=== PATIENT | male | born 1985 | race Caucasian/White ===

== ENCOUNTER 2017-07-10 07:29 | Emergency (ER) | payer OTHER ==
[2017-07-10 07:35] VITALS: BP 122/79; PULSE 68; RESP 18; TEMP 97.3
[2017-07-10] MEDS ORDERED: KETOROLAC 60 MG/2 ML VIAL IM STA (08:19)
[2017-07-10] MEDS ORDERED: ORPHENADRINE 30 MG/ML 2 ML VIAL IM STA (08:19)
--- NOTE | 2017-07-10 08:32 | XR ---
EXAMINATION TYPE: XR cervical spine limited DATE OF EXAM: 07/10/2017 CLINICAL HISTORY: pain TECHNIQUE: 3 views of the cervical spine are submitted. COMPARISON: None. FINDINGS: There is satisfactory in alignment without evidence of acute fracture or dislocation. The pre-vertebral soft tissue appears within normal limits.Disc spaces are well preserved. The C1-C2 art iculation is unremarkable on the open mouth view. IMPRESSION: No acute fracture or dislocation is seen in the cervical spine.
--- NOTE | 2017-07-10 08:49 | ED ---
Neck Injury/Pain HPI - General Chief Complaint: Neck Pain/Injury Stated Complaint: neck pain Time Seen by Provider: 07/10/17 07:54 Source: RN notes reviewed, old records reviewed Mode of arrival: ambulatory Limitations: no limitations - Related Data Previous Rx's Medication Instructions Recorded Acetaminophen-Codeine 300-30mg 1 tab PO Q6H PRN #12 tablet 07/10/17 [Tylenol #3] Cyclobenzaprine [Flexeril] 10 mg PO TID #15 tab 07/10/17 Dexamethasone 0.75 mg PO DAILY #12 tab 07/10/17 Allergies Allergy/AdvReac Type Severity Reaction Status Date / Time No Known Allergies Allergy Verified 07/10/17 08:10 Review of Systems ROS Statement: Those systems with pertinent positive or pertinent negative responses have been documented in the HPI. ROS Other: All systems not noted in ROS Statement are negative. Past Medical History Past Medical History: No Reported History History of Any Multi-Drug Resistant Organisms: None Reported Past Surgical History: Orthopedic Surgery Additional Past Surgical History / Comment(s): left wrist Past Psychological History: No Psychological Hx Reported Smoking Status: Current some day smoker Past Alcohol Use History: Occasional Past Drug Use History: None Reported General Exam Limitations: no limitations Course Vital Signs 07/10/17 07:32 Temperature 97.3 F L Pulse Rate 68 Respiratory 18 Rate Blood Pressure 122/79 O2 Sat by Pulse 100 Oximetry Medical Decision Making - Radiology Data Radiology results: report reviewed fracture dislocations and cervical spine. C1-C2 articulation is unremarkable with a open mouth view. A vertebral soft tissue spaces are within normal limits. Disc spaces are well preserved. Disposition Clinical Impression: Neck muscle spasm Disposition: HOME SELF-CARE Condition: Good Instructions: Cervical Strain (ED) Additional Instructions: Patient needs to apply heat and ice to neck and upper back. Take the medications as prescribed. Follow-up with primary care physician. Patient is to do passive stretching. Return to the emergency department if any alarming signs or symptoms occur. Prescriptions: Acetaminophen-Codeine 300-30mg [Tylenol #3] 1 tab PO Q6H PRN #12 tablet PRN Reason: Pain Cyclobenzaprine [Flexeril] 10 mg PO TID #15 tab Dexamethasone 0.75 mg PO DAILY #12 tab Referrals: None,Stated [Primary Care Provider] - 1-2 days Kailey Silva MD [STAFF PHYSICIAN] - 1-2 days Time of Disposition: 08:47
== END 2017-07-10 08:59 | disposition home or self-care (01) ==
LOC: EC 07:29
DX: M62.838 Other muscle spasm (principal); F17.200 Nicotine dependence, unspecified, uncomplicated
CPT/HCPCS: 99284; 96372 ×2; 72040; J2360; J1885

== ENCOUNTER 2017-07-13 12:44 | Emergency (ER) | payer OTHER ==
[2017-07-13 13:14] VITALS: BP 147/75; PULSE 98; RESP 18; TEMP 99.1
--- NOTE | 2017-07-13 13:59 | ED ---
General Adult HPI - General Chief complaint: Neck Pain/Injury Stated complaint: Neck Pain Time Seen by Provider: 07/13/17 13:50 Source: patient, RN notes reviewed Mode of arrival: ambulatory Limitations: no limitations - History of Present Illness Initial comments: 31-year-old male presents to the emergency department with a chief complaint of neck pain. Patient was seen here a few days ago for this neck pain. Patient states it hurts if he moves his neck certain ways. He noticed little bit of numbness and tingling to the left hand fingertips today so he was concerned. He did taking the medications at home without much improvement he states he'll get better when he hasn't been on a wear off he tells the pain exactly the same. Patient states he has a history of this in the past he states he normally went away much quicker tenderness. Patient was concerned due to his pain and discomforts without that he should be evaluated.Patient denies any recent fever, chills, shortness of breath, chest pain, back pain, abdominal pain , nausea vomiting, numbness or tingling, dysuria or hematuria, constipation or diarrhea, headaches or visual changes, or any other current symptoms. - Related Data Previous Rx's Medication Instructions Recorded Acetaminophen-Codeine 300-30mg 1 tab PO Q6H PRN #12 tablet 07/10/17 [Tylenol #3] Cyclobenzaprine [Flexeril] 10 mg PO TID #15 tab 07/10/17 Dexamethasone 0.75 mg PO DAILY #12 tab 07/10/17 Allergies Allergy/AdvReac Type Severity Reaction Status Date / Time No Known Allergies Allergy Verified 07/13/17 13:14 Review of Systems ROS Statement: Those systems with pertinent positive or pertinent negative responses have been documented in the HPI. ROS Other: All systems not noted in ROS Statement are negative. Past Medical History Past Medical History: No Reported History History of Any Multi-Drug Resistant Organisms: None Reported Past Surgical History: Orthopedic Surgery Additional Past Surgical History / Comment(s): left wrist Past Psychological History: No Psychological Hx Reported Smoking Status: Current every day smoker Past Alcohol Use History: Occasional Past Drug Use History: None Reported General Exam Limitations: no limitations General appearance: alert, in no apparent distress Head exam: Present: atraumatic, normocephalic, normal inspection ENT exam: Present: normal exam, mucous membranes moist Neck exam: Present: normal inspection, full ROM (Pain in all duarte). Absent: tenderness, lymphadenopathy, thyromegaly Respiratory exam: Present: normal lung sounds bilaterally. Absent: respiratory distress, wheezes, rales, rhonchi, stridor Cardiovascular Exam: Present: regular rate, normal rhythm, normal heart sounds. Absent: systolic murmur, diastolic murmur, rubs, gallop, clicks Neurological exam: Present: alert, oriented X3 Psychiatric exam: Present: normal affect, normal mood Skin exam: Present: warm, dry, intact, normal color. Absent: rash Course Vital Signs 07/13/17 13:11 Temperature 99.1 F Pulse Rate 98 Respiratory 18 Rate Blood Pressure 147/75 O2 Sat by Pulse 99 Oximetry Medical Decision Making - Medical Decision Making 31-year-old male presents with patient's he department with a chief complaint of what appears to be a torticollis. This time we did do a CT due to patient stating he still had pain but does not show any acute processes for his symptoms either. We did discuss this will take time we did discuss custodial. We did discuss follow-up with the follow-up with discussed return parameters all his questions. He stated he understood and he is given plan. This time he will be discharged home. - Radiology Data Radiology results: report reviewed, image reviewed Disposition Clinical Impression: Torticollis, acute, Cervical disc herniation Disposition: HOME SELF-CARE Condition: Stable Instructions: Spasmodic Torticollis (ED) Additional Instructions: Please use medication as discussed. Please follow up with family doctor if symptoms have not improved over the next two days. Please return to the emergency room if your symptoms increase or worsen or for any other concerns. Referrals: Rolando Reddy DO [Doctor of Osteopathic Medicine] - 1-2 days Time of Disposition: 14:50
--- NOTE | 2017-07-13 14:47 | CT ---
EXAMINATION TYPE: CT cervical spine wo con DATE OF EXAM: 07/13/2017 COMPARISON: NONE HISTORY: Neck pain CT DLP: 373.[address] of the cervical spine was performed with bone and soft tissue window settings submitted . Coronal and sagittal reconstruction is obtained. There is normal alignment and prevertebral soft tissues. I do not see evidence for fracture or sublu xation. C2-3: Within normal limits C3-4: Mild degenerative disc space narrowing. Left paracentral disc herniation effaces the ventral th ecal sac and results in left lateral recess stenosis and left foraminal encroachment. No evidence for central stenosis. Right neural foramen is patent. C4-5: Mild disc space narrowing. Mild posterocentral disc bulge without adalid herniation. No central stenosis or foraminal encroachment. C5-6: Mild degenerative disc space narrowing. Right paracentral disc bulge with mild effacement ventr al thecal sac. Mild right foraminal encroachment. No central stenosis. C6-7: Mild degenerative disc space narrowing. Broad-based posterior disc bulge effaces the ventral th ecal sac. No evidence for cord contact or central stenosis. Mild bilateral foraminal encroachment. C7-T1: Within normal limits. IMPRESSION: 1. Left paracentral disc herniation at C3-4 with left lateral recess stenosis and left foraminal encr oachment. 2. Disc bulging as detailed above.
== END 2017-07-13 14:57 | disposition home or self-care (01) ==
LOC: EC 12:44
DX: M43.6 Torticollis (principal); M50.20 Other cervical disc displacement, unspecified cervical region; F17.200 Nicotine dependence, unspecified, uncomplicated
CPT/HCPCS: 72125; 99283

== ENCOUNTER 2017-12-20 14:12 | Emergency (ER) | payer OTHER ==
[2017-12-20] MEDS ORDERED: HYDROcodone/APAP 5-325MG 1 EACH TAB PO STA (14:40)
[2017-12-20] MEDS ORDERED: KETOROLAC 60 MG/2 ML VIAL IM STA (14:40)
[2017-12-20] MEDS ORDERED: DIAZEPAM 5 MG TAB PO STA (14:40)
--- NOTE | 2017-12-20 14:53 | ED ---
General Adult HPI - General Chief complaint: Neck Pain/Injury Stated complaint: Neck Pain Time Seen by Provider: 12/20/17 14:25 Source: patient, RN notes reviewed, old records reviewed Mode of arrival: ambulatory Limitations: no limitations - History of Present Illness Initial comments: this is a 31-year-old male to the ER for evaluation. This patient presents today for evaluation regards to neck pain. Patient does have history of back pain. Patient has no trauma. Patient has full prior imaging including CAT scan of neck and before that he has with him. No medications he took at home did help. Patient's symptoms started when he awoke this morning. Patient states he occasionally gets these episodes of tightness in his neck usually is able to resolve. Patient denies any fevers or trauma - Related Data Home Medications Medication Instructions Recorded Confirmed No Known Home Medications [No 12/20/17 12/20/17 Known Home Medications] Allergies Allergy/AdvReac Type Severity Reaction Status Date / Time No Known Allergies Allergy Verified 12/20/17 14:33 Review of Systems ROS Statement: Those systems with pertinent positive or pertinent negative responses have been documented in the HPI. ROS Other: All systems not noted in ROS Statement are negative. Past Medical History Past Medical History: No Reported History History of Any Multi-Drug Resistant Organisms: None Reported Past Surgical History: Orthopedic Surgery Additional Past Surgical History / Comment(s): left wrist Past Psychological History: No Psychological Hx Reported Smoking Status: Current every day smoker Past Alcohol Use History: Occasional Past Drug Use History: Marijuana General Exam - General Exam Comments Initial Comments: decreased range of motion neck in all directions, both passively and actively Limitations: no limitations General appearance: alert, in no apparent distress Head exam: Present: atraumatic, normocephalic, normal inspection Eye exam: Present: normal appearance, PERRL, EOMI. Absent: scleral icterus, conjunctival injection, periorbital swelling ENT exam: Present: normal exam, mucous membranes moist Neck exam: Present: normal inspection. Absent: tenderness, meningismus, lymphadenopathy Respiratory exam: Present: normal lung sounds bilaterally. Absent: respiratory distress, wheezes, rales, rhonchi, stridor Cardiovascular Exam: Present: regular rate, normal rhythm, normal heart sounds. Absent: systolic murmur, diastolic murmur, rubs, gallop, clicks GI/Abdominal exam: Present: soft, normal bowel sounds. Absent: distended, tenderness, guarding, rebound, rigid Extremities exam: Present: normal inspection, full ROM, normal capillary refill. Absent: tenderness, pedal edema, joint swelling, calf tenderness Back exam: Present: normal inspection Neurological exam: Present: alert, oriented X3, CN II-XII intact Psychiatric exam: Present: normal affect, normal mood Skin exam: Present: warm, dry, intact, normal color. Absent: rash Course Vital Signs 12/20/17 14:15 Temperature 98.2 F Pulse Rate 99 Respiratory 18 Rate Blood Pressure 140/95 O2 Sat by Pulse 95 Oximetry - Reevaluation(s) Reevaluation #1: 12/20/17 14:52 patient feeling better with pain medication, taken through both passive and active range of motion exercises, patient also encouraged to apply heat Medical Decision Making - Medical Decision Making 31 male the ER with recurrent spasmatic torticollis of the neck. Patient given stretching exercises anti-inflammatories and pain control for home Disposition Clinical Impression: Strain of neck muscle, Torticollis Disposition: HOME SELF-CARE Condition: Good Instructions: Cervical Strain (ED), Spasmodic Torticollis (ED) Referrals: Sonido Masterson MD [Primary Care Provider] - 1-2 days
[2017-12-20 16:35] VITALS: BP 128/66; PULSE 78; RESP 16; TEMP 97.7
== END 2017-12-20 16:56 | disposition home or self-care (01) ==
LOC: EC 14:12
DX: S16.1XXA Strain of muscle, fascia and tendon at neck level, initial encounter (principal); M43.6 Torticollis; F17.200 Nicotine dependence, unspecified, uncomplicated
CPT/HCPCS: 99284; 96372; J1885

== ENCOUNTER 2020-08-02 20:00 | Emergency (ER) | payer OTHER ==
[2020-08-02 20:08] VITALS: RESP 18
[2020-08-02] MEDS ORDERED: SODIUM CHLORIDE 0.9% 1,000 ML IV STA (20:21)
[2020-08-02] MEDS ORDERED: ONDANSETRON 4 MG/2 ML VIAL IVP STA (20:22)
--- NOTE | 2020-08-02 20:31 | ED ---
Overdose HPI - General Chief Complaint: Overdose Stated Complaint: Overdose Time Seen by Provider: 08/02/20 20:15 Source: patient, RN notes reviewed Mode of arrival: ambulatory Limitations: no limitations - History of Present Illness Initial Comments: 34-year-old male presented to the emergency Department with chief complaint of overdose. Patient states that he reportedly from pill and shopping cart in which he states he looked it up and found that it was oxycodone 30 mg. Patient states that he felt that he wanted to hydrate night so he broke in half that the initial half and then a few minutes later second. Significant other in room states that he became very drowsy, was having difficult breathing became unconscious. At this point some in the household has Narcan and was administered. Patient states he does not use drugs a regular basis he use recreational use narcotics. Denies heroin use. Denies intentional overdose. Patient does feel nauseated said several episodes of vomiting. MD Complaint: accidental overdose - Related Data Previous Rx's Medication Instructions Recorded Diazepam [Valium] 5 mg PO HS #10 tab 12/20/17 HYDROcodone/APAP 5-325MG [[place] 1 tab PO Q6HR PRN #20 tab 12/20/17 5-325] Naproxen [Naprosyn] 500 mg PO Q12HR PRN #30 tab 12/20/17 Allergies Allergy/AdvReac Type Severity Reaction Status Date / Time No Known Allergies Allergy Verified 08/02/20 20:08 Review of Systems ROS Statement: Those systems with pertinent positive or pertinent negative responses have been documented in the HPI. ROS Other: All systems not noted in ROS Statement are negative. Past Medical History Past Medical History: No Reported History History of Any Multi-Drug Resistant Organisms: None Reported Past Surgical History: Orthopedic Surgery Additional Past Surgical History / Comment(s): left wrist Past Psychological History: No Psychological Hx Reported Smoking Status: Current every day smoker Past Alcohol Use History: Occasional Past Drug Use History: Marijuana General Exam Limitations: no limitations General appearance: alert, in no apparent distress Head exam: Present: atraumatic, normocephalic, normal inspection Eye exam: Present: normal appearance, PERRL, EOMI. Absent: scleral icterus, conjunctival injection, periorbital swelling Pupils: Present: miosis ENT exam: Present: normal exam, normal oropharynx, mucous membranes moist Neck exam: Present: normal inspection, full ROM. Absent: tenderness, meningismus, lymphadenopathy Respiratory exam: Present: normal lung sounds bilaterally, decreased breath sounds. Absent: respiratory distress, wheezes, rales, rhonchi, stridor Cardiovascular Exam: Present: regular rate, normal rhythm, normal heart sounds. Absent: systolic murmur, diastolic murmur, rubs, gallop, clicks GI/Abdominal exam: Present: soft, normal bowel sounds. Absent: distended, tenderness, guarding, rebound, rigid Neurological exam: Present: alert, oriented X3, CN II-XII intact Psychiatric exam: Present: normal affect, normal mood Skin exam: Present: warm, dry, intact, normal color. Absent: rash Course Vital Signs 08/02/20 20:02 Temperature 98.5 F Pulse Rate 105 H Respiratory 18 Rate Blood Pressure 124/79 O2 Sat by Pulse 97 Oximetry Medical Decision Making - Medical Decision Making Patient had accidental overdoses he states that he took a pill at a phone. This was oxycodone 30 mg. Patient was given Narcan by family member. Patient is awake alert and orientated is here with his significant other will be discharged at this is an accidental overdose was no intention. He denies any suicidal or homicidal. - Lab Data Result diagrams: 08/02/20 20:28 08/02/20 20:28 Lab Results 08/02/20 08/02/20 08/02/20 Range/Units 20:28 20:28 20:28 WBC 16.8 H (3.8-10.6) k/uL RBC 4.82 (4.30-5.90) m/uL Hgb 16.0 (13.0-17.5) gm/dL Hct 47.6 (39.0-53.0) % MCV 98.7 (80.0-100.0) fL MCH 33.1 (25.0-35.0) pg MCHC 33.5 (31.0-37.0) g/dL RDW 12.2 (11.5-15.5) % Plt Count 240 (150-450) k/uL Neutrophils % 69 % Lymphocytes % 24 % Monocytes % 4 % Eosinophils % 1 % Basophils % 1 % Neutrophils # 11.7 H (1.3-7.7) k/uL Lymphocytes # 4.0 (1.0-4.8) k/uL Monocytes # 0.7 (0-1.0) k/uL Eosinophils # 0.2 (0-0.7) k/uL Basophils # 0.1 (0-0.2) k/uL Sodium 140 (137-145) mmol/L Potassium 3.4 L (3.5-5.1) mmol/L Chloride 105 (98-107) mmol/L Carbon Dioxide 23 (22-30) mmol/L Anion Gap 12 mmol/L BUN 11 (9-20) mg/dL Creatinine 0.90 (0.66-1.25) mg/dL Est GFR (CKD-EPI)AfAm >90 (>60 ml/min/1.73 sqM) Est GFR (CKD-EPI)NonAf >90 (>60 ml/min/1.73 sqM) Glucose 142 H (74-99) mg/dL Calcium 9.1 (8.4-10.2) mg/dL Total Bilirubin 0.4 (0.2-1.3) mg/dL AST 21 (17-59) U/L ALT 14 (4-49) U/L Alkaline Phosphatase 67 (38-126) U/L Total Protein 7.3 (6.3-8.2) g/dL Albumin 4.7 (3.5-5.0) g/dL Salicylates <1.0 mg/dL Urine Opiates Screen Detected H (NotDetected) Ur Oxycodone Screen Not Detected (NotDetected) Urine Methadone Screen Not Detected (NotDetected) Ur Propoxyphene Screen Not Detected (NotDetected) Acetaminophen <10.0 ug/mL Ur Barbiturates Screen Not Detected (NotDetected) U Tricyclic Antidepress Not Detected (NotDetected) Ur Phencyclidine Scrn Not Detected (NotDetected) Ur Amphetamines Screen Not Detected (NotDetected) U Methamphetamines Scrn Not Detected (NotDetected) U Benzodiazepines Scrn Not Detected (NotDetected) Urine Cocaine Screen Not Detected (NotDetected) U Marijuana (THC) Screen Detected H (NotDetected) - EKG Data -: EKG Interpreted by [place] EKG Comments: EKG performed at 20:16 sinus tachycardia I ordered axis with a rate of 108 RI 154 QRS 98 QT/QTC 352/471 Disposition Clinical Impression: Accidental drug overdose, Opiate overdose Disposition: HOME SELF-CARE Condition: Stable Instructions (If sedation given, give patient instructions): Adult Overdose (ED) Additional Instructions: Please return to the Emergency Department if symptoms worsen or any other concerns. Is patient prescribed a controlled substance at d/c from ED?: No Referrals: None,Stated [Primary Care Provider] - 1-2 days Time of Disposition: 21:21
[2020-08-02 20:37] LABS: Basophils # (A) 0.1 k/uL (0-0.2); Basophils % (A) 1 %; Eosinophils # (A) 0.2 k/uL (0-0.7); Eosinophils % (A) 1 %; HCT 47.6 % (39.0-53.0); Lymphocytes % (A) 24 %; MCH 33.1 pg (25.0-35.0); MCHC 33.5 g/dL (31.0-37.0); MCV 98.7 fL (80.0-100.0); Mean Platelet Volume 7.9; Monocytes # (A) 0.7 k/uL (0-1.0); Monocytes % (A) 4 %; Neutrophils # (A) 11.7 k/uL (1.3-7.7); Neutrophils % (A) 69 %; Platelet Count 240 k/uL (150-450); RBC 4.82 m/uL (4.30-5.90); RDW 12.2 % (11.5-15.5); WBC 16.8 k/uL (3.8-10.6)
[2020-08-02 20:43] LABS: Chloride 105 mmol/L (98-107)
[2020-08-02 20:46] LABS: ALT 14 U/L (4-49); AST 21 U/L (17-59); Acetaminophen <10.0 ug/mL; African American GFR (CKD) >90 (>60 ml/min/1.73 sqM); Albumin 4.7 g/dL (3.5-5.0); Alkaline Phosphatase 67 U/L (38-126); Anion Gap 12 mmol/L; Blood Urea Nitrogen 11 mg/dL (9-20); Calcium 9.1 mg/dL (8.4-10.2); Carbon Dioxide 23 mmol/L (22-30); Glucose 142 mg/dL (74-99); Non-African American GFR(CKD) >90 (>60 ml/min/1.73 sqM); Potassium 3.4 mmol/L (3.5-5.1); Salicylate <1.0 mg/dL; Sodium 140 mmol/L (137-145); Total Bilirubin 0.4 mg/dL (0.2-1.3); Total Protein 7.3 g/dL (6.3-8.2)
[2020-08-02 21:16] LABS: Amphetamine Screen,Urine Not Detected (NotDetected); Barbiturate Screen,Urine Not Detected (NotDetected); Benzodiazepines Screen,Urine Not Detected (NotDetected); Cocaine Screen,Urine Not Detected (NotDetected); Methadone Screen, Urine Not Detected (NotDetected); Opiate Screen,Urine Detected (NotDetected); Oxycodone Screen, Urine Not Detected (NotDetected); Phencyclidine Screen,Urine Not Detected (NotDetected); Tricyclic Antidepressant,Urine Not Detected (NotDetected); Urn Cannabinoid Scrn Detected (NotDetected)
[2020-08-02 21:38] VITALS: BP 111/77; PULSE 92; TEMP 98.1
== END 2020-08-02 21:38 | disposition home or self-care (01) ==
LOC: EC 20:00
DX: T40.2X1A Poisoning by other opioids, accidental (unintentional), initial encounter (principal); F17.200 Nicotine dependence, unspecified, uncomplicated
CPT/HCPCS: 36415; 93005; 80053; 85025; 80306; 83520; 99284; 96374; 96361; G0480; J2405; 80329

== ENCOUNTER → 2021-06-27 | Outpatient (CLI) | payer OTHER ==
--- NOTE | 2021-06-29 12:28 | CT ---
EXAMINATION TYPE: CT cervical spine wo con DATE OF EXAM: 06/27/2021 COMPARISON: 07/13/2017 HISTORY: NECK PAIN X5 YEARS CT DLP: 489.9 mGycm CONTRAST: None CT of the cervical spine is performed in the axial plane at 2 mm thick sections. Reconstructed image s in the coronal, and sagittal plane are reviewed on the computer. No acute fractures are evident. Vertebral body alignment is normal. Disc heights are preserved. Vertebral body heights are preserved. C3-4: There is mild left paracentral disc bulge at C3-4 with mild anterior thecal sac compression. No spinal canal stenosis is present. Some endplate spurring from the left C4 endplate is present with m ild anterior thecal sac compression. C5-6: At C5-6 there is right paracentral broad-based disc bulge with moderate anterior thecal sac com pression. This appears to have cord contact and cord deformity. No spinal canal stenosis present. Lef t foraminal stenosis is present. C6-7: At C6-7 there is broad-based disc bulge with moderate anterior thecal sac compression. No AP sp inal canal stenosis present. The neural foramen are patent. IMPRESSIONS: 1. Disc bulging C3-4, C5-6, C6-7. This appears greatest at C5-6 with moderate right anterior thecal sac compression and cord deformity. Consider additional workup with MRI.
== END | disposition home or self-care (01) ==
LOC: RADCTMAIN 17:26
PROVIDERS: ATTEND Family Medicine
DX: M50.223 Other cervical disc displacement at C6-C7 level (principal)
CPT/HCPCS: 72125

== ENCOUNTER → 2021-08-13 | Outpatient (CLI) | payer OTHER ==
--- NOTE | 2021-08-14 03:26 | MR ---
EXAMINATION TYPE: MR wrist RT wo con DATE OF EXAM: 08/13/2021 COMPARISON: None HISTORY: Right wrist pain, clicking, and limited movement for 1 year. Multiplanar multiecho imaging of the right wrist without contrast. There is abnormal decreased signal on the T1 images in the proximal scaphoid bone and consistent with old fracture and some degree of chronic avascular necrosis. The other carpal bones appear intact. Th e radiocarpal joint appears anatomic. The distal radius and ulna appear intact. The lunate appears in tact. The visualized metacarpals are intact. There is no evidence of a soft tissue mass. The triangul ar cartilage appears intact. Flexor tendons appear intact. There is slight increased wrist joint flui d. 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 No acute fracture seen. Slight increased wrist ezequiel int fluid consistent with some mild synovitis.
== END | disposition home or self-care (01) ==
LOC: RADMRIMAIN 15:15
PROVIDERS: ATTEND Orthopaedic Surgery
DX: M21.931 Unspecified acquired deformity of right forearm (principal)

== ENCOUNTER → 2022-05-10 | Outpatient (CLI) | payer OTHER ==
[2022-05-10 10:47] VITALS: BP 117/78; PULSE 85; RESP 18; TEMP 98.7
--- NOTE | 2022-05-10 10:47 | P.PAINPG ---
PQRS Measure Charge Sheet Comment: HISTORY OF PRESENT ILLNESS: 36 yr old male as a referral from Dr. Moreno presents today for severe and chronic neck pain x 5 yrs secondary to disc herniations, disc bulges, neuroforaminal stenoses, spinal canal stenosis, facet arthropathy and BL C6/C7 nerve root impingement for evaluation. Patient states his pain originates from the base of his neck with radiation of pain to the BL back of shoulders. Pain level is 3/10 in intensity but escalates as high as 10/10 with activity, lifting and reaching. Pain is constant, sharp sore in character. It is palliated with alternating heat & ice, medications (War, Tylenol OTC), topicals, OTC patches, repositioning and rest. PMH: No Reported History SH: L Wrist Surgery SH: Daily tobacco user, Occasional ETOH use, +Cannabis use. Works in [place] in a physically demanding job. FH: Non contributory All: NKDA Meds: See list REVIEW OF ORGAN SYSTEMS: CONSTITUTIONAL: No fevers or chills. No recent weight loss. HEENT: No visual acuity loss, eye pain, difficulties with hearing. No nosebleeds. No difficulty swallowing. RESPIRATORY: Denies any troubles with breathing or dyspnea on exertion. CARDIOVASCULAR: Denies any chest pain, palpitations, or recent heart attacks. GASTROINTESTINAL: Denies fatty food intolerance. Has change in bowel habits and gas bloat. GENITOURINARY: Denies any blood in urine. Has increased urinary frequency. NEUROLOGICAL: + numbness and tingling along the distal extremities. No seizure disorders or headaches. MUSCULOSKELETAL: + back pain SKIN: No skin cancer. No rash. PSYCHIATRIC: Denies current depression or suicidal thoughts. ENDOCRINE: Denies current thyroid disorders. Denies any blood sugar glucose intolerance. HEME/LYMPHATIC: Denies any lumps and bumps around the neck. History of deep venous thrombosis. ALLERGY/IMMUNOLOGY: No immunoglobulin therapy. No immune deficiencies. BREAST: Denies current breast lumps, pain or nipple discharge. Physical Examinations : Constitutional : Cooperative , not in acute distress . HEENT: Neck supple. No Lymphadenopathy. Normal thyroid size . Eyes no ptosis , no icterus, no photophobia . Hearing intact. Normal oropharynx. No Thrush. Respiratory : Chest clear to auscultations bilaterally. No wheezing. No rhonchi. Cardiovascular : Regular rate and rhythm , S1 / S2. No S3 . No S4. Gastrointestinal : Abdomen soft. No tenderness. Bowel sounds x 4. No organomegaly . Genitourinary : Deferred. Neurologic : Cranial nerve II to XII intact. No focal neurological deficits. Psychiatric : alert & oriented x 3. Matching mood & appropriate affect. Judgment & insight intact. Lymphatic No Lymphadenopathy. Musculoskeletal : Cervical Spine Motor strength in the deltoid and biceps: Normal right side. Normal Left side Motor strength biceps and the wrist extensors: Normal right side . Normal left side Motor strength in the triceps muscle: Normal right side. Normal left side Deep tendon reflexes: Normal at the biceps. Normal at Brachioradialis. Normal at triceps Vertebral body tenderness to palpation over C5, C6 Cervical facet loading test: positive bilaterally Spurling test: positive L>R Neck distraction test: positive bilaterally Aicha sign: positive bilaterally Lumbar spine Motor strength lower extremities ,thigh and legs 5/5 Right side , 5/5 Left side Deep tendon reflexes : Normal Knee Jerk. Normal Ankle Jerk Vertebral body tenderness over Lumbar facet Loading Test: positive Right / positive Left Range of motion of the lumbar spine Flexion 30 degrees, extension 10 degrees Straight Leg Raise test: Left/ Right positive at degree Winter test: positive right / positive left. Severe tenderness over the Sacroiliac joint on the Right / Left sides Gaenslen test: positive bilaterally Seated flexion test: positive bilaterally. Sacral spine : Severe tenderness over the Sacroiliac joint: right side / left side Range of motion: Flexion of the lumbar spine <60 degrees Range of motion: Extension of the lumbar spine <20 degrees Gaenslen's Test positive Saeid's Test positive Winter test: positive right side / left side Thigh Thrust Test Sacral Thrust Test Imaging: MRI without contrast of the cervical spine from 10/05/21 reviewed Assessment/ Plan : Cervcial disc bulges, Cervical DH Recommendation of MILTON C5-C6. May need a series of injections, up to 3 within a 6 mo period, for optimal pain relief. Risks, benefits of procedure discussed and patient verbalized understanding. Denies aspirin or anti- coagulant use or medical history of diabetes. All questions answered. I have spent greater than 50 minutes on patient care today. Dr Turcios was available by phone for the evaluation of this patient. The time was used to review the medical records including relevant urine studies and Prescription history (MAPs), review of the available imaging, evaluation and examination of the patient, coordination of care with the medical staff and if applicable referring physicians, as well as creation of the medical record PQRS Narrative: Smoking Status Current every day smoker Home Medications: Ambulatory Orders HYDROcodone/APAP 5-325MG [War 5-325] 1 tab PO Q6HR PRN #20 tab 12/20/17 Naproxen [Naprosyn] 500 mg PO Q12HR PRN #30 tab 12/20/17 diazePAM [Valium] 5 mg PO HS #10 tab 12/20/17 Controlled Substance Measures - Controlled Substance Measures Is patient prescribed a controlled substance at discharge?: No
== END ==
LOC: PNWHC3 10:06
PROVIDERS: ATTEND Specialist
DX: M50.20 Other cervical disc displacement, unspecified cervical region (principal); F17.200 Nicotine dependence, unspecified, uncomplicated
CPT/HCPCS: 99211